=== PATIENT | female | born 1965 | race Caucasian/White ===

== ENCOUNTER → 2020-10-18 | Outpatient (CLI) | payer BC, OTHER ==
[~2020-10-18] MED LIST: IBUPROFEN800 MG PO
== END ==
LOC: HEART 5 08:47
DX: I31.3 Pericardial effusion (noninflammatory) (principal); R07.9 Chest pain, unspecified; R06.02 Shortness of breath; I34.0 Nonrheumatic mitral (valve) insufficiency
CPT/HCPCS: 78452; 93306; A9502; J2785